=== PATIENT | female | born 1945 | race Caucasian/White ===

== ENCOUNTER 2020-07-23 15:26 | Outpatient (REF) | payer MEDICARE, OTHER, SELFPAY | END 2020-07-23 15:27 | disposition home or self-care (01) | LOC: HO.LAB 15:26 | PROVIDERS: PCP Internal Medicine; Visit Provider Internal Medicine | DX: Z20.828 Contact with and (suspected) exposure to other viral communicable diseases (principal) | CPT/HCPCS: 36415; 87635 ==